=== PATIENT | male | born 1970 | race Two or more races ===

== ENCOUNTER 2023-01-04 08:38 | Inpatient (IN) | payer OTHER ==
[~2023-01-04] VITALS: Ht 170.2 cm; Wt 91.6 kg
[2023-01-07] MEDS ORDERED: NORVASC10 MG PO (08:28)
[2023-01-07 08:39] LABS: URINE APPEARANCE Clear; URINE BILIRRUBIN Negative (NEGATIVE); URINE BLOOD Trace; URINE COLOR Yellow; URINE GLUCOSE Negative (NEGATIVE); URINE LEUKOCYTE Negative; URINE NITRATE Negative; URINE PROTEIN Negative (NEGATIVE)
[2023-01-07 08:41] LABS: URINE BACTERIA 8.4 uL (0.0-1933); URINE EPITHELIAL CELLS 2.3 uL (0.0-38.8); URINE WBC 5.4 uL (0.0-23.2)
[2023-01-07 09:17] LABS: CREATININE SERUM 0.77 mg/dL (0.70-1.30); GFR 106.09; POTASSIUM 4.36 mEq/L (3.5-5.1); TSH 1.86 uIU/mL (0.358-3.74)
[2023-01-10] MEDS ORDERED: MEDROLPACK PO (09:55)
[2023-01-10] MEDS ORDERED: PERCOCET 5-3251 EACH PO (09:55)
[2023-01-10] MEDS ORDERED: COLACE100 MG PO (09:56)
== END 2023-01-11 12:35 | disposition home or self-care (01) | DRG 473 ==
LOC: O/R 01-10 05:44 → PED 01-10 05:44 → SURG 01-10 08:15 → PED 01-10 14:37
PROVIDERS: ADMIT Orthopaedic Surgery Orthopaedic Surgery of the Spine; ATTEND Orthopaedic Surgery Orthopaedic Surgery of the Spine
PROC: 0RT30ZZ Resection of Cervical Vertebral Disc, Open Approach (ICD-10-PCS; 2023-01-10)
PROC: 0PB30ZZ Excision of Cervical Vertebra, Open Approach (ICD-10-PCS; 2023-01-10)
PROC: 4A11X4G Monitoring of Peripheral Nervous Electrical Activity, Intraoperative, External Approach (ICD-10-PCS; 2023-01-10)
PROC: 07DS0ZZ Extraction of Vertebral Bone Marrow, Open Approach (ICD-10-PCS; 2023-01-10)
PROC: 0RG20A0 Fusion of 2 or more Cervical Vertebral Joints with Interbody Fusion Device, Anterior Approach, Anterior Column, Open Approach (ICD-10-PCS; principal; 2023-01-10 13:30)
DX: M50.023 Cervical disc disorder at C6-C7 level with myelopathy (principal); M50.021 Cervical disc disorder at C4-C5 level with myelopathy; M50.022 Cervical disc disorder at C5-C6 level with myelopathy; I10 Essential (primary) hypertension